=== PATIENT | male | born 1975 | race Caucasian/White ===

== ENCOUNTER 2021-10-27 19:04 | Emergency (ER) | payer OTHER ==
[~2021-10-27] VITALS: Ht 162.6 cm; Wt 59.1 kg
[2021-10-27 19:07] VITALS: BP 116/74
[2021-10-27] MEDS ORDERED: cephalexin 250mg capsule PO ONE (19:45)
[2021-10-27] MEDS ORDERED: CEPH250T PO (19:46)
[2021-10-27] MEDS ORDERED: TETanus/Pertussis (Acell)/Diphther VAC/PF (Tdap-Adult) 0.5ml syringe IMVAC ONE (20:00)
[2021-10-27] MEDS ORDERED: HYDROcodone/acetaminophen 5mg/325mg tablet PO ONE (20:15)
== END 2021-10-27 20:25 | disposition home or self-care (01) ==
LOC: ER 19:04
DX: S81.011A Laceration without foreign body, right knee, initial encounter (principal); Z79.2 Long term (current) use of antibiotics; Z20.3 Contact with and (suspected) exposure to rabies; W45.8XXA Other foreign body or object entering through skin, initial encounter; Y93.89 Activity, other specified; Y92.89 Other specified places as the place of occurrence of the external cause; Y99.8 Other external cause status
CPT/HCPCS: 12002; 90471; 90715; 99283